=== PATIENT | female | born 1990 | race Caucasian/White ===

== ENCOUNTER 2017-05-15 17:03 | Emergency (ER) | payer OTHER ==
[~2017-05-15] VITALS: Ht 167.6 cm; Wt 61.4 kg
[~2017-05-15 17:03] MED LIST: ACET50TA PO; COLA100C5 PO; GLYB5TA PO; IBUP-1114 PO; IRON65TA PO; STUACAP PO
[2017-05-15 17:04] VITALS: BP 138/83
[2017-05-15] MEDS ORDERED: ALBUTEROL 90 MCG/ACT 8GM HFA INHALER INH ONE (19:45)
--- NOTE | 2017-05-15 19:48 | ECGEPIP ---
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
[2017-05-15 19:57] LABS: BASO % 0.5 % (0.0-1.0); EOS # 0.3 K/mm3 (0.0-0.50); EOS % 4.6 % (0.0-3.0); LARGE UNSTAINED CELL # 0.1 K/mm3 (0.0-0.4); LARGE UNSTAINED CELL % 1.7 % (0.0-4.0); LYMPH # 2.8 K/mm3 (1.5-6.5); LYMPH % 42.9 % (24.0-44.0); MEAN CORPUSCULAR HEMOGLOBIN 31.8 pg (27.0-33.0); MEAN CORPUSCULAR HGB CONC 33.1 g/dl (32.0-36.5); MEAN CORPUSCULAR VOLUME 96.2 fl (80.0-96.0); MONO # 0.2 K/mm3 (0.0-0.8); MONO % 3.7 % (0.0-5.0); NEUTROPHILS # 2.9 K/mm3 (1.8-7.7); NEUTROPHILS % 46.7 % (36.0-66.0); PLATELET COUNT, AUTOMATED 280 k/mm3 (150-450); RED CELL DISTRIBUTION WIDTH 12.1 % (11.5-14.5); WHITE BLOOD COUNT 6.3 K/mm3 (4.0-10.0)
[2017-05-15 20:37] LABS: ANION GAP 6 MEQ/L (8-16); BLOOD UREA NITROGEN 19 MG/DL (7-18); CALCIUM LEVEL 9.8 MG/DL (8.5-10.1); CARBON DIOXIDE LEVEL 25 MEQ/L (21-32); CHLORIDE LEVEL 108 MEQ/L (98-107); CREATININE FOR GFR 0.68 MG/DL (0.55-1.02); GLOMERULAR FILTRATION RATE > 60.0 (>60); GLUCOSE, FASTING 99 MG/DL (70-105); SODIUM LEVEL 139 MEQ/L (136-145)
[2017-05-15] MEDS ORDERED: ISOVUE-370 76% 100ML VIAL (Q9967) As Ordered ONE (21:22)
--- NOTE | 2017-05-15 22:30 | REPUSA ---
CT angiogram of the chest Clinical statement: Chest pain and shortness of breath. Technique: Multiple axial CT images were obtained from the thoracic inlet through the upper abdomen a fter a bolus administration of nonionic intravenous contrast. Coronal and sagittal reconstructions we re also obtained. Comparison: None. Findings: The pulmonary arteries are well-opacified with contrast, with no intraluminal filling defec ts to suggest embolism. The thoracic aorta is unremarkable. Thyroid gland is within normal limits. Th ere is no thoracic lymphadenopathy. There are no pericardial or pleural effusions. The lungs are umer r. Limited imaging of the upper abdomen is unremarkable. There are no suspicious osseous lesions. Impression: Unremarkable CT examination of the chest. No evidence of pulmonary embolism.
--- NOTE | 2017-05-16 05:55 | REP ---
PA LATERAL CHEST: 05/15/2017. Clinical history: Chest pain, right-sided chest tightness. Findings: No prior study. The lung laguerre are well inflated. There is no infiltrate, effusion, atelectasis or mass. The heart, mediastinal and hilar contours are normal. The aorta is intact. Airway is intact. There is a mild dextroconvex curve of the thoracic spine. No pneumothorax or pneumomediastinum. No free air. Bony thorax without compression deformity. Impression: 1. Mild dextroconvex curvature mid thoracic spine, otherwise negative chest. Signed by Juanito Stiles MD 05/16/2017 11:16 A
== END 2017-05-15 22:56 | disposition home or self-care (01) ==
LOC: M ED 17:03
DX: J98.01 Acute bronchospasm (principal); R07.89 Other chest pain
CPT/HCPCS: 71020; 71275; 80048; 81025; 82550; 82553; 85025; 85379; 86140; 93005; 99284; Q9967

== ENCOUNTER → 2018-08-02 | Outpatient (CLI) | payer OTHER | LOC: M LRY 09:09 | DX: Z36.89 Encounter for other specified antenatal screening (principal); Z3A.20 20 weeks gestation of pregnancy | CPT/HCPCS: 76811 ==

== ENCOUNTER → 2018-09-06 | Outpatient (CLI) | payer OTHER | LOC: M LRY 08:30 | DX: Z36.89 Encounter for other specified antenatal screening (principal); Z3A.24 24 weeks gestation of pregnancy | CPT/HCPCS: 76816 ==

== ENCOUNTER 2018-12-23 19:39 | Inpatient (IN) | payer OTHER ==
[2018-12-23] VITALS (19 sets, daily range): BP systolic 117–143; BP diastolic 59–103
[~2018-12-23] VITALS: Ht 167.6 cm; Wt 79.6 kg
[~2018-12-23 19:39] MED LIST changes: -ACET50TA PO; +MAPA500T2 PO
[2018-12-23] MEDS ORDERED: PRENTAB9 PO (20:02)
[2018-12-23] MEDS ORDERED: LR 1,000 ML IV SCH (20:24)
[2018-12-23] MEDS ORDERED: LACTATED RINGER'S 1000 ML IV STA (20:24)
[2018-12-23 21:10] LABS: HEMATOCRIT 36.4 % (36.0-47.0); HEMOGLOBIN 11.6 g/dl (12.0-15.5); MEAN CORPUSCULAR HEMOGLOBIN 31.2 pg (27.0-33.0); MEAN CORPUSCULAR HGB CONC 31.9 g/dl (32.0-36.5); MEAN CORPUSCULAR VOLUME 97.8 fl (80.0-96.0); PLATELET COUNT, AUTOMATED 210 10^3/uL (150-450); RED BLOOD COUNT 3.72 10^6/uL (4.00-5.40); WHITE BLOOD COUNT 12.3 10^3/uL (4.0-10.0)
[2018-12-23] MEDS ORDERED: FENTANYL 2MCG/ML ROPIVACAINE 0.2% IN 0.9% NACL 100ML IVBAG As Ordered ONE (21:40)
--- NOTE | 2018-12-23 21:58 | HPEPDOC ---
Obstetrical History & Physical General Date of Admission 12/23/18 History of Present Illness Opal is a 28yo with SIUP at 40w1d by lmp c/w 8wk u/s who presents with CC of leakage of clear fluid. Uncertain timing, reports had some scant pinkish leaking since this morning, but then a big gush this evening 6pm. No overt vaginal bleeding, has some increasingly uncomfortable ctx. Feels movement. No f/c/n/v/CP/SOB. Chief Complaint: Contractions, term, LOF, term Information Provided By: Patient Care Care: Good Care Dating Final EDC: Dec 22, 2018 Final EDC by: LMP, 1st trimester (US) Antepartum Course Diagnos(e)s Hx of anencephaly delivery at 19wk in 2010, Hx of GDM in 2015 with [id number] delivery at 38wk (normal 1hr glucola this and growth scan 12/04: 68%ile, [id number]), 39lb weight gain, slight anemia Height (inches): 66 Pre- weight (lbs.): 136 Admission Weight (lbs.): 175 Change in Weight (lbs.): 39 Past Medical History Past Obstetrical History : Past Obstetrical History: Multigravida (2010 19wk anencephaly, early sab NO D&C, 06/2016 38wk A1GDM iol [id number]) 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: 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 Pap (self resolved, last pap Oct 2015 wnl), History of STD (uncertain type) Past Medical History Medical History seasonal allergies Surgical History: Tonsilectomy, Taylor teeth Family History Significant Family History: No pertinent family hx Social History Marital Status: Family situation: Spouse/partner home Psychosocial History: No pertinent psych hx * Smoker: non-smoker Alcohol: Denies Drugs: denies Imunizations Tdap status: current Influenza Status: declined Allergies Coded Allergies: No Known Allergies (Unverified , 12/23/18) Medications Scheduled Multivitamins/ ( 27-0.8 mg) 1 Tab Tab, 1 TAB PO DAILY Physical Examination Physical Examination GENERAL: Alert and oriented times three. ABDOMEN: Gravid and non-tender to touch. FETUS: Is vertex (VTX) by sterile vaginal examination (SVE), grossly ruptured with clear fluid EXTREMITIES: No edema Vital Signs/I&O Vital Signs Date Time Temp Pulse Resp B/P (MAP) Pulse Ox O2 Delivery O2 Flow Rate FiO2 12/23/18 20:01 98.3 105 16 134/75 (94) Pertinent Laboratoy Data Blood Type: O+ RBC Antibody Screen: Negative HIV: Negative Hepatitis B: Negative Hepatitis C: Unknown Rapid Plasma Reagin: Nonreactive Rubella: Immune Varicella: Unknown Chlamydia/Gonorrhea: Negative Group B Streptococcus: Negative Quad Screen Test: Negative (negative [id number] and MSAFP) Glucose Tolerance Test: 104 Anatomy Ultrasound Ultrasound Date: Aug 02, 2018 Placenta Location: Anterior Normal Anatomy: Yes Placenta Previa: No Steroid Therapy Steroid Therapy: No Vaginal Examination Dilation: 4 cm Effacement: 80% Station: -1, 0 Cervical Consistency: Soft Cervical Position: Posterior Presentation: Cephalic presentation Assessment Heart Rate (FHR): 140 Variability: Moderate Accelerations: Positive Decelerations: None Tocometer Contractions: Yes Frequency: regular, every 2-5 min. Duration: greater than 60 seconds Strength: palpated as moderate Assessment/Plan Assessment Opal is a 28yo with SIUP at 40w1d by lmp c/w 8wk u/s presenting with gross SROM, likely at 1800 this evening, clear. SCE 4/80/-1, ctx q4-5min. Cat I FHRT. Vitals wnl, benign exam. Cephalic by SCE. GBS negative. course complicated by: Hx of anencephaly delivery at 19wk in 2010, Hx of GDM in 2016 with [id number] delivery at 38wk (normal 1hr glucola this and growth scan 12/04: 68%ile, 9mm30fw), 39lb weight gain, slight anemia Plan Admit and orient. 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 Diet: clear liquids Group B Streptococcus (GBS) negative Labs and intravenous (IV) per unit protocol. Counseled on Pitocin and augmentation of labor (IOL). Lactated Ringers (LR): Bolus 1000 mL, then at 125 mL/hr. Anticipate normal spontaneous delivery () Candidate for epidural if desired MD Mariela Avery Katrina D MD Dec 23, 2018 21:35
[2018-12-23] MEDS ORDERED: EPIDURAL/PCA KEYS XX PRN (23:15)
[2018-12-23] MEDS ORDERED: FENTANYL/ROPIVACAINE/NACL BAG 100 ML EPIDURAL SCH (23:15)
[2018-12-23] MEDS ORDERED: REFRIGERATOR IV KEYS XX PRN (23:15)
[2018-12-23] MEDS ORDERED: ePHEDrine SULFATE 25 MG/5 ML(5MG/ML) SYRINGE IV PRN (23:15)
[2018-12-23] MEDS ORDERED: ONDANSETRON 4MG/2ML VIAL (J2405) IV PRN (23:15)
[2018-12-23] MEDS ORDERED: OXYTOCIN DRIP 30 UNITS in APPROPRIATE DILUENT 1 EA IV SCH (23:15)
[2018-12-23] MEDS ORDERED: LACTATED RINGER'S 1000 ML IV PRN (23:15)
[2018-12-23] MEDS ORDERED: EPIDURAL COMMENT XX SCH (23:15)
[2018-12-23] MEDS ORDERED: diphenhydrAMINE INJ 50MG/ML VIAL (J1200) IV PRN (23:15)
[2018-12-23] MEDS ORDERED: NALOXONE INJ 0.4 MG/1 ML VIAL (J2310) IV PRN (23:15)
[2018-12-24] VITALS (13 sets, daily range): BP systolic 122–140; BP diastolic 62–86
[2018-12-24] MEDS ORDERED: MEASLES,MUMPS,RUBELLA VACCINE INJ (MMR-II) (90707) SC SCH (02:45)
[2018-12-24] MEDS ORDERED: OXYTOCIN DRIP 30 UNITS in APPROPRIATE DILUENT 1 EA IV SCH (02:45)
[2018-12-24] MEDS ORDERED: RHOGAM 300 MCG (1500 IU) INJ (J2790) IM SCH (02:45)
[2018-12-24] MEDS ORDERED: DOCUSATE SODIUM 100 MG CAP PO PRN (02:45)
[2018-12-24] MEDS ORDERED: DIBUCAINE 1% OINTMENT 30GM TOP PRN (02:45)
[2018-12-24] MEDS ORDERED: ACETAMINOPHEN 500 MG TAB PO PRN (02:45)
--- NOTE | 2018-12-24 02:54 | DNPDOC ---
[facility] Delivery Note Delivery Note DATE OF DELIVERY: 12/24/2018 PREDELIVERY DIAGNOSIS: 40w2d SROM POST DELIVERY DIAGNOSIS: Delivered. 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 Brenda Sierra MD ANESTHESIA: epidural ESTIMATED BLOOD LOSS: 200 mL. FINDINGS: 8 pound 2 oz (3680g) male , Score 9/9 DELIVERY SUMMARY: Opal is a 28yo [id number] s/p uncomplicated at 40w2d after presenting with SROM, delivering at 0227 on 12/24/18. She presented at 4cm grossly ruptured and with pitocin augmentation she progressed to C/C/0 at which point she began pushing. Great maternal effort, head quickly delivered OA, restituted DAMIÁN. Left anterior shoulder delivered easily followed by posterior shoulder and corpus. There was a left compound hand. Terminal meconium noted. vigorous with spontaneous cry, placed on maternal abdomen, nose and mouth suctioned with bulb suction, apgars 9/9. Cord clamped x2 and cut. Uterine massage performed, traction on the umbilical cord, placenta delivered spontaneously and intact with 3 vessel centrally inserted cord. IV pitocin was given per protocol, bimanual massage performed and uterus then firm at u-2cm. Inspection of perineum and vagina revealed 1 very small nany just below the introitus repaired with 3-0 vicryl with a figure-of-8 with hemostasis noted. Mom and infant were doing well when I left the room. MD Mariela Avery Katrina D MD Dec 24, 2018 02:51
[2018-12-24] MEDS: PRENATAL VITAMINS CHEWABLE TABLET PO SCH (07:46)
[2018-12-24] MEDS: IBUPROFEN 800 MG TAB PO PRN ×2 (08:27→21:42)
[2018-12-25 06:00] VITALS: BP 113/71
--- NOTE | 2018-12-25 07:07 | IPNPDOC ---
Text Note Date of Service The patient was seen on 12/25/18. NOTE PPD1 States feeling well, pain controlled with prescribed meds. Baby bonding and feeding well. No heavy VB. Lochia slowing. Ambulatory. Tolerating PO without issues. Voiding spont. No CP/LP/SOB. VSSAF NAD A&O LE no C/C/E Ut at U-2, firm a/p: Doing well. Cont routine care. D/C today, to boarding ifi baby not d/c'd. Sessions VS,Zay, I+O VSZay, I+O Vital Signs Date Time Temp Pulse Resp B/P (MAP) Pulse Ox O2 Delivery O2 Flow Rate FiO2 12/25/18 06:00 97.7 79 17 113/71 (85) 12/24/18 18:20 96 SESSIONS,BRAYDEN Winter MD Dec 25, 2018 07:07
--- NOTE | 2018-12-25 07:22 | DS.PDOC ---
Discharge Summary General Date of Admission Dec 23, 2018 at 20:58 Date of Discharge [id number] Discharge Summary ADMITTING DIAGNOSES: Active labor, SROM DISCHARGE DIAGNOSES: Same, HOSPITAL COURSE: Admitted and delivery uncomplicated, . course uncomplicated. DISCHARGE MEDICATIONS: Motrin, Lanolin DISCHARGE INSTRUCTIONS: Nothing in the vagina for 6 weeks. F/U in OBGYN clinic in 6-8 weeks. Sessions Vital Signs/I&Os Vital Signs Date Time Temp Pulse Resp B/P (MAP) Pulse Ox O2 Delivery O2 Flow Rate FiO2 12/25/18 06:00 97.7 79 17 113/71 (85) 12/24/18 18:20 96 Discharge Medications Scheduled Multivitamins/ ( 27-0.8 mg) 1 Tab Tab, 1 TAB PO DAILY, (Reported) Allergies Coded Allergies: No Known Allergies (Unverified , 12/23/18) SESSIONS,BRAYDEN Winter MD Dec 25, 2018 07:22
[2018-12-25] MEDS: PRENATAL VITAMINS CHEWABLE TABLET PO SCH (08:20)
[2018-12-25] MEDS ORDERED: MAPA500T2 PO (08:30)
[2018-12-25] MEDS ORDERED: IBUP-1114 PO (08:30)
[2018-12-25] MEDS ORDERED: DOCUSATE SODIUM 100 MG CAP PO SCH (09:00)
== END 2018-12-25 13:00 | disposition home or self-care (01) | DRG 807 ==
LOC: M LDO 19:39 → M LDI 20:58 → M OBS 12-24 05:50
PROVIDERS: ADMIT Obstetrics & Gynecology; ATTEND Obstetrics & Gynecology
PROC: 10E0XZZ Delivery of Products of Conception, External Approach (ICD-10-PCS; principal; 2018-12-24)
DX: O48.0 Post-term pregnancy (principal); Z37.0 Single live birth; Z3A.40 40 weeks gestation of pregnancy; O32.6XX0 Maternal care for compound presentation, not applicable or unspecified